=== PATIENT | female | born 2000 | race Caucasian/White ===

== ENCOUNTER 2020-01-26 13:40 | Emergency (ER) | payer SELFPAY ==
[~2020-01-26] VITALS: Ht 180.3 cm; Wt 68.2 kg
[~2020-01-26 13:40] MED LIST: ANTIDEPRESSANT; SEPTRA SUS200/5-40/5 PO
[2020-01-26 13:44] VITALS: TEMP 98.3
[2020-01-26 14:08] LABS: COLLECTION METHOD CLEAN CATCH
[2020-01-26 14:20] LABS: MUCOUS Present /lpf; PH 7 (5-8); SQUAMOUS EPITHELIAL 0-2 /hpf; URINE APPEARANCE Clear; URINE BACTERIA None Seen /hpf; URINE BILIRUBIN Negative (NEGATIVE); URINE BLOOD 3+ (NEGATIVE); URINE COLOR Yellow; URINE GLUCOSE Negative (NEGATIVE); URINE KETONE Negative (NEGATIVE); URINE LEUKOCYTE ESTERASE Negative (NEGATIVE); URINE NITRATE Negative (NEGATIVE); URINE PROTEIN(semi-quant) 1+ (NEGATIVE); URINE UROBILINOGEN Negative (NEGATIVE)
[2020-01-26] MEDS ORDERED: FLAGYL500 MG PO ×2 (14:58→15:03)
[2020-01-26 15:13] VITALS: BP 118/82; PULSE 88
[2020-01-26] MEDS ORDERED: ZITHROMAX 250M250 MG PO (15:56)
== END 2020-01-26 15:15 | disposition home or self-care (01) ==
LOC: COL.ER 13:40
PROVIDERS: Physician Assistant
DX: N76.0 Acute vaginitis (principal); A56.09 Other chlamydial infection of lower genitourinary tract; Z97.5 Presence of (intrauterine) contraceptive device
CPT/HCPCS: J1885